=== PATIENT | female | born 1940 | race African-American/Black ===

== ENCOUNTER 2016-11-02 09:51 | Inpatient (IN) | payer BC, MEDICAID ==
[~2016-11-02] VITALS: Ht 167.6 cm; Wt 78.0 kg
[2016-11-02] MEDS ORDERED: SODIUM CHLORIDE 0.9% 1,000 ML IV ONE (10:18)
[2016-11-02] MEDS ORDERED: cefTRIAXone 1GM/50ML D5W 50 ML IV ONE (10:30)
[2016-11-02] MEDS ORDERED: methylPREDNISolone SOD SUCC 125 MG/2 ML VL IV ONE (10:30)
[2016-11-02] MEDS ORDERED: IPRATROPIUM BROM 0.5 MG/2.5ML INH SOL NEB ONE (10:30)
[2016-11-02] MEDS ORDERED: ALBUTEROL SULF 2.5 MG/0.5ML(0.5%) NEB SOLN NEB ONE (10:30)
[2016-11-02 10:48] LABS: Basophils # (auto) 0 uL; Basophils % (auto) 0.2 % (0.0-2.0); CONDITION Y; DEFINITIVE SEE PRINTOUT; Eosinophils # (auto) 0.1 uL; Eosinophils % (auto) 1.3 % (0.0-7.0); Hematocrit 47.7 % (36.0-46.0); Hemoglobin 15.2 g/dL (12.2-16.2); Lymphocytes # (auto) 1.5 uL; Lymphocytes % (auto) 21.4 % (10.0-50.0); Mean Corpuscular Hemoglobin 24.9 pg (28.0-32.0); Mean Corpuscular Hgb Conc. 31.9 g/dL (32.0-36.0); Mean Corpuscular Volume 78.2 fL (80.0-100.0); Mean Platelet Volume 10.9 fL (7.4-10.4); Monocytes # (auto) 0.4 uL; Monocytes % (auto) 5.7 % (0.0-12.0); Neutrophils % (auto) 71.4 % (37.0-80.0); Platelet Count (auto) 287 10^3/uL (140-450); Red Cell Distribution Width 15.8 % (11.6-16.0)
[2016-11-02] MEDS ORDERED: cloNIDine HCL 0.1 MG TAB PO ONE (11:00)
[2016-11-02 11:03] LABS: INR 0.99 (0.9-1.15); Partial Thromboplastin Time 27.9 sec (22.64-33.71); Prothrombin Time 10.8 sec (9.37-12.3)
[2016-11-02 11:07] LABS: Albumin 3.7 g/dL (3.4-5.0); Anion Gap 9 (5-15); Blood Urea Nitrogen 12 mg/dL (7-18); Calcium 9.6 mg/dL (8.5-10.1); Carbon Dioxide 25 mmol/L (21-32); Chloride 113 mmol/L (98-107); Glucose 108 mg/dL (74-106); Potassium 3.9 mmol/L (3.5-5.1); Sodium 147 mmol/L (136-145)
[2016-11-02 11:10] LABS: Aspartate Aminotransferase 24 U/L (15-37); BUN/Creatinine Ratio 12.8; GFR African American 75 mL/min; GFR Non-African American 62 mL/min
[2016-11-02 11:15] LABS: Alkaline Phosphatase 78 U/L (45-117); Bilirubin, Total 0.6 mg/dL (0.2-1.0)
[2016-11-02] MEDS ORDERED: AZITHROMYCIN 500MG/D5W 250ML 250 ML IV ONE (11:30)
[2016-11-02 11:46] LABS: B-Type Natriuretic Peptide 53.72 pg/mL (0-100)
[2016-11-02 11:47] LABS: Temperature: 22.2 C (20.0-25.0)
[2016-11-02] MEDS: methylPREDNISolone SOD SUCC 40 MG/ML VL IV SCH ×2 (11:59→18:41)
[2016-11-02] MEDS ORDERED: IPRATROPIUM BROM 0.5 MG/2.5ML INH SOL NEB PRN (14:00)
[2016-11-02] MEDS ORDERED: ALBUTEROL SULF 2.5 MG/0.5ML(0.5%) NEB SOLN NEB PRN (14:00)
[2016-11-02 14:16] LABS: Urine Bilirubin Negative (Negative); Urine Blood Negative /uL (Negative); Urine Color Yellow (Yellow); Urine Glucose Normal (Normal); Urine Ketone Negative (Negative); Urine Mucus FEW (None Seen); Urine Nitrite Negative (Negative); Urine RBC 9 /hpf (0 - 4); Urine Squamous Epithelial Cell FEW /hpf (<5); Urine Urobilinogen Normal (Negative); Urine pH 5.5 (5.0-8.0)
[2016-11-02] MEDS: hydrALAZINE HCL 20 MG/ML VL IV PRN ×2 (18:12→22:44)
[2016-11-02 21:33] VITALS: BP 179/85
[2016-11-02 22:00] VITALS: BP 179/84
[2016-11-03] MEDS: methylPREDNISolone SOD SUCC 40 MG/ML VL IV SCH ×4 (00:11→18:25)
[2016-11-03] MEDS ORDERED: MORPHINE SULF INJ 2 MG/ML SYRINGE 1ML IV PRN (04:45)
[2016-11-03] MEDS: hydrALAZINE HCL 20 MG/ML VL IV PRN ×2 (05:21→16:11)
[2016-11-03 06:06] VITALS: BP 174/88
[2016-11-03 06:54] LABS: Basophils # (auto) 0 uL; Basophils % (auto) 0.1 % (0.0-2.0); CONDITION Y; DEFINITIVE SEE PRINTOUT; Eosinophils # (auto) 0 uL; Hematocrit 45.5 % (36.0-46.0); Hemoglobin 14.8 g/dL (12.2-16.2); Lymphocytes % (auto) 7.9 % (10.0-50.0); Mean Corpuscular Hemoglobin 25.3 pg (28.0-32.0); Mean Corpuscular Hgb Conc. 32.6 g/dL (32.0-36.0); Mean Corpuscular Volume 77.8 fL (80.0-100.0); Mean Platelet Volume 11.5 fL (7.4-10.4); Monocytes # (auto) 0.1 uL; Monocytes % (auto) 0.5 % (0.0-12.0); Neutrophils % (auto) 91.5 % (37.0-80.0); Platelet Count (auto) 291 10^3/uL (140-450); Red Cell Distribution Width 15.6 % (11.6-16.0); SUSPECT SEE PRINTOUT
[2016-11-03 09:00] VITALS: BP 166/87
[2016-11-03] MEDS: AZITHROMYCIN 500MG/D5W 250ML 250 ML IV SCH (10:23)
[2016-11-03 10:57] LABS: BUN/Creatinine Ratio 21.4; Calcium 9.8 mg/dL (8.5-10.1); Potassium 3.6 mmol/L (3.5-5.1)
[2016-11-03 13:00] VITALS: BP 176/86
[2016-11-03] MEDS ORDERED: OMEP20CA74 PO (16:49)
[2016-11-03] MEDS ORDERED: GABA-497 PO (16:49)
[2016-11-03] MEDS ORDERED: METF500T PO (16:49)
[2016-11-03] MEDS ORDERED: BEN10T PO (16:49)
[2016-11-03] MEDS ORDERED: ACET5SOL5 PO (16:49)
[2016-11-03 17:11] VITALS: BP 198/96
[2016-11-03 22:00] VITALS: BP 152/83
[2016-11-03] MEDS: LEVALBUTEROL HCL 1.25 MG/0.5 ML NEB SOLN NEB SCH (22:19)
[2016-11-04] MEDS: methylPREDNISolone SOD SUCC 40 MG/ML VL IV SCH ×2 (00:03→05:20)
[2016-11-04 06:00] VITALS: BP 168/119
[2016-11-04] MEDS: hydrALAZINE HCL 20 MG/ML VL IV PRN (06:14)
[2016-11-04 06:29] LABS: CONDITION Y; DEFINITIVE SEE PRINTOUT; Hematocrit 45.7 % (36.0-46.0); Hemoglobin 14.7 g/dL (12.2-16.2); Mean Corpuscular Hemoglobin 25.2 pg (28.0-32.0); Mean Corpuscular Hgb Conc. 32.2 g/dL (32.0-36.0); Mean Corpuscular Volume 78.3 fL (80.0-100.0); Mean Platelet Volume 11.2 fL (7.4-10.4); Platelet Count (auto) 295 10^3/uL (140-450); Red Cell Distribution Width 15.8 % (11.6-16.0); SUSPECT SEE PRINTOUT; White Blood Cell 21.8 10^3/uL (4.4-10.8)
[2016-11-04 06:46] LABS: Metamyelocytes % 0; Myelocytes % 0; Promyelocytes % 0; Reactive Lymphocytes 0
[2016-11-04] MEDS: LEVALBUTEROL HCL 1.25 MG/0.5 ML NEB SOLN NEB SCH ×2 (07:02→14:25)
[2016-11-04 07:09] LABS: BUN/Creatinine Ratio 21.5; Potassium 3.8 mmol/L (3.5-5.1)
[2016-11-04 07:56] LABS: Hypochromia Slight; Microcytosis Slight; Platelet Estimate Adequate
[2016-11-04 07:57] LABS: Burr Cells FEW; Ovalocytes FEW
[2016-11-04 08:41] VITALS: BP 148/76
[2016-11-04] MEDS: AZITHROMYCIN 500MG/D5W 250ML 250 ML IV SCH (10:00)
[2016-11-04 11:57] VITALS: BP 161/85
[2016-11-04] MEDS ORDERED: LEVOFLOXACIN 500 MG TAB PO ONE (13:45)
== END 2016-11-04 15:19 | disposition home or self-care (01) | DRG 191 ==
LOC: ER 09:52 → TELE 09:53 → TELE-CENTR 18:47
PROVIDERS: ADMIT Internal Medicine; ATTEND Internal Medicine
DX: J44.1 Chronic obstructive pulmonary disease with (acute) exacerbation (principal); J45.901 Unspecified asthma with (acute) exacerbation; I47.1 Supraventricular tachycardia; J96.10 Chronic respiratory failure, unspecified whether with hypoxia or hypercapnia; J98.11 Atelectasis; I10 Essential (primary) hypertension; I70.0 Atherosclerosis of aorta; E11.42 Type 2 diabetes mellitus with diabetic polyneuropathy; T38.0X5A Adverse effect of glucocorticoids and synthetic analogues, initial encounter; Y92.89 Other specified places as the place of occurrence of the external cause; Z87.891 Personal history of nicotine dependence; Z99.81 Dependence on supplemental oxygen
CPT/HCPCS: 36415; 71010; 80048; 80053; 81001; 83880; 84484; 85007; 85025; 85027; 85610; 85730; 87040; 93005; 94640; 96365; 96368; 96375; J0696